=== PATIENT | male | born 1950 | race Caucasian/White ===

== ENCOUNTER 2018-11-10 19:25 | Emergency (ER) | payer OTHER ==
--- NOTE | 2018-11-10 19:35 | PDOC ---
History of Present Illness - General History Source: Patient Exam Limitations: No Limitations - History of Present Illness Initial Comments: 11/10/18 20:33 A portion of this note was documented by scribe services under my direction. I have reviewed the details of the note, within reason, and agree with the documentation with the following case summary and management plan written by me. Patient treated in the ED. Nursing notes are reviewed and incorporated into the medical decision-making. Vital signs reviewed. Assessment and plan: This is a 68-year-old male who comes in complaining of headache and feeling of dizziness 2 weeks since he hit his head. Patient saw his primary care doctor's blood pressure was mildly elevated so he was referred to the ED for further evaluation. Patient had a head CT that was normal for any acute pathology including no intracranial lesions or hemorrhages. Patient given Tylenol for his headache Patient's blood pressure here in the emergency department was 143/99 Patient discharged home will follow-up with his primary care doctor <Neris Barboza I - Last Filed: 11/10/18 20:33> - General History Source: Patient Exam Limitations: No Limitations - History of Present Illness Initial Comments: 11/10/18 20:38 The patient is a 68 year old male, with no significant past medical history of who presents to the emergency department with an injury. The patient notes he saw his PCP, Dr. Moore and was sent to the ED for an evaluation after he fell and hit his head a week ago. Patient notes his blood pressure was highly elevated and took blood pressure pill to stabilize it. Patient states he feels pain in the center of his forehead accompanied with dizziness. PAST MEDICAL HISTORY: no significant history PAST SURGICAL HISTORY: no significant history FAMILY HISTORY: no pertinent history SOCIAL HISTORY: Pt lives with family and is employed. Alcohol use (several times a week) MEDICATIONS: reviewed ALLERGIES: As per nursing notes <Soren Ford - Last Filed: 11/10/18 20:40> - General Chief Complaint: Injury Stated Complaint: HEAD TRAUMA 2 WEEKS AGO Time Seen by Provider: 11/10/18 19:35 Past History - Past Medical History Anemia: No Asthma: No Cancer: No Cardiac Disorders: No CVA: No CHF: No Dementia: No Diabetes: No GI Disorders: No Disorders: No HTN: No Hypercholesterolemia: No Liver Disease: No Seizures: No Thyroid Disease: No - Surgical History Abdominal Surgery: No Appendectomy: No Cardiac Surgery: No Cholecystectomy: No Lung Surgery: No Neurologic Surgery: No Orthopedic Surgery: No - Suicide/Smoking/Psychosocial Hx Smoking History: Never smoked Have you smoked in the past 12 months: No Hx Alcohol Use: Yes (several times/week) Drug/Substance Use Hx: No Substance Use Type: None Hx Substance Use Treatment: No <Neris Barboza I - Last Filed: 11/10/18 20:33> <Soren Ford - Last Filed: 11/10/18 20:40> - Past Medical History Allergies/Adverse Reactions: Allergies Allergy/AdvReac Type Severity Reaction Status Date / Time Penicillins Allergy Severe Rash Verified 10/01/13 11:23 Home Medications: Ambulatory Orders Hydrocodone/Acetaminophen [[place] 10-325 Tablet] 1 tab PO QID PRN 10/01/13 Review of Systems - Review of Systems Able to Perform ROS?: Yes Comments:: 11/10/18 20:39 General: No fevers or chills, no weakness, no weight loss HEENT: No change in vision. No sore throat,. No ear pain CardioVascular: No chest pain or shortness of breath Respiratory:No cough, or wheezing. Gastrointestinal: no nausea, vomiting, diarrhea or constipation, No rectal bleeding Genitourinary: No dysuria, hematuria, or frequency Musculoskeletal: No joint or muscle pain or swelling Neurologic: (+) dizziness. No headache, vertigo, or loss of consciousness Psychiatric: nor depression Skin: No rashes or easy bruising Endocrine: no increased thirst or abnormal weight change Allergic: no skin or latex allergy All other systems reviewed and normal All Other Systems: Reviewed and Negative <Soren Ford - Last Filed: 11/10/18 20:40> *Physical Exam - Vital Signs Last Vital Signs Temp Pulse Resp BP Pulse Ox 97.6 F 84 16 143/99 100 11/10/18 19:32 11/10/18 19:32 11/10/18 19:32 11/10/18 19:32 11/10/18 19:32 - Physical Exam Comments: 11/10/18 20:39 GENERAL: The patient is awake, alert, and fully oriented, in no acute distress. HEAD: Normal with no signs of trauma. EYES: Pupils equal, round and reactive to light, extraocular movements intact, sclera anicteric, conjunctiva clear. EXTREMITIES: Normal range of motion, no edema. NEUROLOGICAL: Normal speech, normal gait. PSYCH: Normal mood, normal affect. SKIN: Warm, Dry, normal turgor, no rashes or lesions noted. <Soren Ford - Last Filed: 11/10/18 20:40> Moderate Sedation - Procedure Monitoring Vital Signs: Procedure Monitoring Vital Signs Temperature 97.6 F 11/10/18 19:32 Pulse Rate 84 11/10/18 19:32 Respiratory Rate 16 11/10/18 19:32 Blood Pressure 143/99 11/10/18 19:32 O2 Sat by Pulse Oximetry (%) 100 11/10/18 19:32 <Soren Ford - Last Filed: 11/10/18 20:40> ED Treatment Course - Medications Given in the ED: ED Medications Discontinued Medications Generic Name Dose Route Start Last Admin Trade Name Freq PRN Reason Stop Dose Admin Acetaminophen 1,000 mg 11/10/18 20:09 11/10/18 20:12 Tylenol - PO 11/10/18 20:10 1,000 mg ONCE ONE Administration <Soren Ford - Last Filed: 11/10/18 20:40> *DC/Admit/Observation/Transfer - Discharge Dispostion Decision to Admit order: No <Neris Barboza I - Last Filed: 11/10/18 20:33> - Attestations Scribe Attestion: 11/10/18 20:40 Documentation prepared by Soren Ford, acting as medical geneticist for Neris Barboza MD <Soren Ford - Last Filed: 11/10/18 20:40> Diagnosis at time of Disposition: Post-concussion headache - Discharge Dispostion Disposition: HOME Condition at time of disposition: Good - Referrals Referrals: Sammy Moore MD [Primary Care Provider] - - Patient Instructions Additional Instructions: Take Tylenol or Motrin as needed for pain and headache. Return to the emergency department immediately with ANY new, persistent or worsening symptoms. Continue any medications as previously prescribed by your physician. You should follow up with your primary doctor as soon as possible regarding today's emergency department visit. . Please make sure your doctor reviews the results of your emergency evaluation. Thank you for coming to the Emergency Department today for your care. It was a pleasure to see you today. Please note that your evaluation is INCOMPLETE until you follow-up with your doctor. - Post Discharge Activity
[2018-11-10 19:46] VITALS: BP 143/99; PULSE 84; TEMP 97.6; BMI 29.7
[2018-11-10] MEDS ORDERED: ACETAMINOPHEN 500 MG TABLET (FP) PO ONE (20:09)
[2018-11-10] MEDS ORDERED: ACETAMINOPHEN 500 MG TABLET (FP) ONE (20:09)
== END 2018-11-10 20:41 | disposition home or self-care (01) ==
LOC: FER 19:25
DX: G44.89 Other headache syndrome (principal)
CPT/HCPCS: 70450-TC; 99281-25

== ENCOUNTER 2022-05-23 09:02 | Day surgery (SDC) | payer OTHER ==
[2022-05-15 14:28] VITALS: BMI 29.7
[~2022-05-23 09:02] MED LIST: CYCLOPENTOLATE 2% OPHTH SOLN 2 ML BOTTLE OD SCH; PHENYLEPHRINE 2.5% OPHTH SOLN 15 ML BOTTLE OD SCH
[2022-05-23] MEDS ORDERED: PHENYLEPHRINE 2.5% OPHTH SOLN 15 ML BOTTLE OD SCH ×3 (09:30→12:00)
[2022-05-23] MEDS ORDERED: OFLOXACIN 0.3% OPHTHALMIC SOLUTION 5 ML BOTTLE OD SCH ×2 (09:30→09:40)
[2022-05-23] MEDS ORDERED: OFLOXACIN 0.3% OPHTHALMIC SOLUTION 5 ML BOTTLE ONE (09:31)
[2022-05-23] MEDS ORDERED: TROPICAMIDE 1% OPHTH SOLN 15 ML BOTTLE OD SCH (09:40)
[2022-05-23] MEDS: TROPICAMIDE 1% OPHTH SOLN 15 ML BOTTLE OD SCH ×2 (09:40→09:45)
[2022-05-23] MEDS ORDERED: PHENYLEPHRINE 2.5% OPHTH SOLN 15 ML BOTTLE OD ONE ×2 (09:45→09:50)
[2022-05-23] MEDS ORDERED: OFLOXACIN 0.3% OPHTHALMIC SOLUTION 5 ML BOTTLE OD ONE ×2 (09:45→09:50)
[2022-05-23] MEDS ORDERED: CYCLOPENTOLATE 2% OPHTH SOLN 2 ML BOTTLE OD ONE ×2 (09:45→09:50)
[2022-05-23] MEDS ORDERED: TROPICAMIDE 1% OPHTH SOLN 15 ML BOTTLE OD ONE (09:50)
[2022-05-23] MEDS ORDERED: MIDAZOLAM HCL 2 MG/2 ML SINGLE DOSE VIAL ONE (10:05)
[2022-05-23] MEDS ORDERED: CARBACHOL 0.01% INTRA-OCULAR 1.5 ML VIAL ONE (10:36)
[2022-05-23 11:14] VITALS: RESP 20; TEMP 98
[2022-05-23 11:36] VITALS: BP 107/68; PULSE 72
[2022-05-23] MEDS ORDERED: NEO/POLYMYX B SULF/DEXAMETH OPHTHALMIC 5ML BOTTLE ONE (11:47)
[2022-05-23] MEDS ORDERED: BSS (NA/CA/MG/K) BALANCED SALT SOLUTION OPHTH SOLN 15 ML BOTTLE ONE (11:47)
== END 2022-05-23 11:25 | disposition home or self-care (01) ==
LOC: FASU 09:02
PROVIDERS: ATTEND Ophthalmology
PROC: 08RJ3JZ Replacement of Right Lens with Synthetic Substitute, Percutaneous Approach (ICD-10-PCS; principal; 2022-05-23 10:12)
DX: H26.8 Other specified cataract (principal)
CPT/HCPCS: 66984; V2632

== ENCOUNTER 2022-06-20 08:01 | Day surgery (SDC) | payer OTHER ==
[2022-06-18 12:34] VITALS: BMI 29.7
[2022-06-20] MEDS: CYCLOPENTOLATE 2% OPHTH SOLN 2 ML BOTTLE ONE ×3 (08:15→08:25)
[2022-06-20] MEDS: CIPROFLOXACIN 0.3% EYE DROPS 5 ML BOTTLE ONE ×3 (08:15→08:25)
[2022-06-20] MEDS: PHENYLEPHRINE 2.5% OPHTH SOLN 15 ML BOTTLE ONE ×3 (08:15→08:25)
[2022-06-20] MEDS: TROPICAMIDE 1% OPHTH SOLN 15 ML BOTTLE ONE ×3 (08:15→08:25)
[2022-06-20] MEDS ORDERED: CARBACHOL 0.01% INTRA-OCULAR 1.5 ML VIAL ONE (08:57)
[2022-06-20] MEDS ORDERED: NEO/POLYMYX B SULF/DEXAMETH OPHTHALMIC 5ML BOTTLE ONE (08:57)
[2022-06-20] MEDS ORDERED: TETRACAINE 0.5% OPHTH SOLN 2 ML BOTTLE ONE (08:57)
[2022-06-20] MEDS ORDERED: LIDOCAINE 1% P/F 10 MG/ML VIAL ONE (08:57)
[2022-06-20] MEDS ORDERED: BSS (NA/CA/MG/K) BALANCED SALT SOLUTION OPHTH SOLN 15 ML BOTTLE ONE (08:57)
[2022-06-20] MEDS ORDERED: MIDAZOLAM HCL 2 MG/2 ML SINGLE DOSE VIAL ONE (09:52)
[2022-06-20 10:09] VITALS: RESP 18; TEMP 97.8
[2022-06-20 10:44] VITALS: BP 121/74; PULSE 65
== END 2022-06-20 10:40 | disposition home or self-care (01) ==
LOC: FASU 08:01
PROVIDERS: ATTEND Ophthalmology
PROC: 08RK3JZ Replacement of Left Lens with Synthetic Substitute, Percutaneous Approach (ICD-10-PCS; principal; 2022-06-20 09:47)
DX: H26.8 Other specified cataract (principal)
CPT/HCPCS: 66984; V2632

== ENCOUNTER 2024-12-03 07:18 | Day surgery (SDC) | payer OTHER ==
[2024-12-01 12:54] VITALS: BMI 29.7
[2024-12-03] MEDS: BUPIVACAINE HCL/PF 0.75% 10 ML VIAL NR ONE
[2024-12-03] MEDS ORDERED: ACETAMINOPHEN 500 MG TABLET (FP) PO PRN (08:54)
[2024-12-03 10:13] VITALS: RESP 18
[2024-12-03] MEDS: LIDOCAINE 1% P/F 10 MG/ML VIAL INF ONE ×2 (10:52)
[2024-12-03] MEDS: BUPIVACAINE HCL/PF 0.5% (5 MG/ML) 30 ML VIAL IJ ONE (10:53)
[2024-12-03 13:57] VITALS: BP 120/76; PULSE 81; TEMP 98.6
== END 2024-12-03 11:32 | disposition home or self-care (01) ==
LOC: JASU-SURG 07:18
PROVIDERS: ATTEND Pain Medicine Pain Medicine
PROC: 3E0T3BZ Introduction of Anesthetic Agent into Peripheral Nerves and Plexi, Percutaneous Approach (ICD-10-PCS; principal; 2024-12-03 11:30)
DX: M47.812 Spondylosis without myelopathy or radiculopathy, cervical region (principal)
CPT/HCPCS: 76000-TC-FY